=== PATIENT | female | born 1950 | race Caucasian/White ===

== ENCOUNTER 2022-06-06 13:29 | Inpatient (IN) | payer MEDICARE ==
[~2022-06-06] VITALS: Ht 157.5 cm; Wt 55.0 kg
[2022-07-01] MEDS ORDERED: SIMVASTATIN20 MG PO (15:10)
[2022-07-01] MEDS ORDERED: HYDRALAZINE HCL10 MG PO (15:12)
--- NOTE | 2022-07-10 05:50 | NUR ---
PT AMABULTED IN TO DAY SURGERY FOR PROCEEDURE. PT UNDRESSES SELF AND DOES CHG WIPE DOWN INDEPENDANTLY, NO ASSISTANCE NEEDED. INTAKE ASSESSMENT DONE. PT DENIES PAIN AND NAUSEA. IV STARTED PER PROTOCOL BY RALPH STEPHENSON. IV FLUIDS STARTED (SEE MAR). SUGEY MACIAS, STATES TO GIVE PEPCID AND SCOPALAMINE PATCH NOW AND HOLD HEPARIN FOR HIM TO GIVEN IN OR. NO ADDITIONAL NEEDS AT THIS TIME. BED RAILS UP. CALL LIGHT WITHIN REACH.
--- NOTE | 2022-07-10 07:08 | NUR ---
COLLEEN MAYES, TO BEDSIDE TO BEDSIDE TO DISCUSS PLAN OF CARE WITH PT. DR. REYES ALSO TO BEDSIDE. PT VERBALIES UNDERSTANDING OF PLAN OF CARE AND STATES HER QUESTIONS HAVE BEEN ANSWERED. ABX SCANNED PER JORGE SHANK PAPERER. NO ADDITIONAL REQUESTS OR CONCERNS. PT TO OR.
--- NOTE | 2022-07-10 08:35 | NUR ---
PT ALERT, ORIENTED AND SUPPORTED BY HER LATIA. PT SEEMS INFORMED, ALL QUESTIONS ASKED ANSWERED. LATIA WILL REMAIN FOR DC. GAVE BLESSING, OR TEAM READY FOR PT. WILL FOLLOW NEEDED
--- NOTE | 2022-07-10 10:14 | NUR ---
07/10/22 1014 Jessica Vences 1004-PATIENT ARRIVED TO PACU ON 6L MASK RR EVEN NONAROUSABLE ORAL AND NASAL AIRWAY IN PLACE. RN DOING JAW THRUST TO MAINTAIN OPEN AIRWAY. PATIENT LAYING SUPINE. IVF INFUSING. DOMINGUEZ CATHETER DRAINING YELLOW URINE. NO DRAINAGE ON DIMAS PAD. SR. LEFT ARM IV INFILTRATED DURING SURGERY IV WAS REMOVED WILL PLACE ICE SLIGHT SWELLING. 1013-PATIENT MAINTAINING OWN AIRWAY WITH ORAL AND NASAL AIRWAY IN PLACE. 6L MASK RR EVEN 100%
--- NOTE | 2022-07-10 12:00 | NUR ---
Pt arrives to medical floor room 113 from PACU. Pt drowsy but oriented x4. Reports no pain. On room air, CPOX, 99%. VSS. Ortega in place draining bright yellow urine. IVF Infusing WNL. Renee pad in place with no drainage noted. Pt at bedside, will cont. plan of care.
--- NOTE | 2022-07-10 13:10 | NUR ---
Post op vital signs taken, pt resting in bed, drowsy but oriented. at bedside, attentive to patient and engaged in care. Per PACU report pt BP post op was in 90/50 range. Pt has no pain or needs.
--- NOTE | 2022-07-10 14:05 | NUR ---
Post op vitals taken. Pt states continuing to feel dizzy, PRN meclizine provided along with scheduled medications. Pt able to swallow pills with water and applesauce. Pt's at bedside and states no needs.
--- NOTE | 2022-07-10 15:05 | NUR ---
Pt VSS, pt states having no pain or nausea, c/o "vision is scrolling down" when she looks at clock- no other complaints. Shannon patent. IVF infusing WNL. Tanner in room with patient and very attentive.
--- NOTE | 2022-07-10 16:10 | NUR ---
Post op vitals complete. Pt resting in bed with eyes closed, awakens to voice and is A+O. Pt and family educated regarding anesthesia medications provided and the time it takes for the body to metabolize such meds, etc. Pt states questions answered and has no needs at this time.
--- NOTE | 2022-07-10 18:05 | NUR ---
Pt continues to c/o blurry vision, Dr Matthews notified and verbal order received to remove scopalamine patch. Pt education complete and patch removed. Will monitor. VSS. A+O. Pt on RA. Ortega emptied, I/Os charted. Pt was able to tolerate 50% of dinner, no pain or nausea. at bedside, engaged in care. Call light within reach.
--- NOTE | 2022-07-10 19:29 | NUR ---
REC REPORT FROM LATOYA GOOD. PT IN BED, STATES EYES STILL FEEL DIFFERENT, NO WORSE THAN WHAT SHE HAD REPORTED TO AM SHIFT. NO NEEDS AT THIS TIME.
--- NOTE | 2022-07-10 20:50 | NUR ---
HS MEDICATIONS GIVEN PER DEC. PT DRINKING ICE WATER, ABLE TO TAKE PO MEDICATIONS, DID GET NAUSEATED AFTER THE HEPARIN SUBQ INJECTION, BUT CLEARED QUICKLY, HAD ALSO DRANK THE MINERAL OIL MEDICATION. DENIED WANTING ANTINAUSEA MEDICATION. ABLE TO MOVE LEGS, FEET, ON COMMAND. PERCARE GENTLY DONE, NOTED SMALL AMOUNT BRIGHT RED BLEEDING ON PERIPAD. FRESH PAD, DISPOSABLE UNDERWEAR ON. NOTED SMALL AMOUNT BRUISING, WITH VAG PACKING VISIBLE. DENIES DISCOMFORT. IV PATENT, CPOX, SCD'S IN PLACE. DOMINGUEZ PATENT. CALL LIGHT WITHIN REACH.
--- NOTE | 2022-07-10 21:12 | NUR ---
LATIA CALLED, STATED THAT HIS WAS CONCERNED ABOUT NOT KNOWING WHAT WAS GOING ON. ASKED QUESTIONS OF MEDICATIONS GIVEN, IF ORDERED BY EDUCATED . CHECKED ON PT, SHE WAS AWAKE, SUGGESTED SHE CALL HER SHE WASN'T GETTING HIS TEXT MESSAGES.
--- NOTE | 2022-07-10 22:39 | NUR ---
2200 MEDICATIONS GIVEN WITH CRACKERS, ICE WATER. STATES SHE WAS SLEEPING PRIOR TO RN INTO ROOM. YELLOW URINE EMPTIED FROM CATH BAG AT THIS TIME. DENIES PAIN. CALL LIGHT WITHIN REACH. CPOX AND SCD'S IN PLACE.
--- NOTE | 2022-07-10 23:42 | NUR ---
CHECKED ON PT, FOUND HER STANDING FOOT BED, SCD'S IN PLACE, DOMINGUEZ INTACT. SAID SHE HEARD VOICES IN [place] AND WAS CHECKING ON THEM. ASSISTED TO BED, KNOWS SHE IS IN THE HOSPITAL, AND RECENT SURGERY. WARM BLANKETS PROVIDED. DENIES NAUSEA, DIZZINESS, NO CONCERNS ABOUT HER EYES COMPARED TO POST SURGERY CONCERNS. ALL PERSONAL SUPPLIES WITHIN REACH. BED ALARM PLACED FOR SAFETY. SCANT BLEEDING NOTED ON PAD, VAG PACKING IN PLACE.
--- NOTE | 2022-07-11 00:17 | NUR ---
ROUNDED ON PT. AWAKE, COMPUTERS "REBOOTING" IN ROOMS. SHE WAS READING HER DEVICE. NO NEEDS.
--- NOTE | 2022-07-11 00:55 | NUR ---
BED ALARM SOUNDING. PT SAID SHE WAS GETTING UP TO SEE IF WE WERE OK, "RAPID RESPONSE WAS CALLED OVERHEAD AND SHE GOT WORRIED". REASSURANCE GIVEN. BACK TO BED, NO NEEDS. BED ALARM PLACED.
--- NOTE | 2022-07-11 02:43 | NUR ---
EYES CLOSED, RESP EVEN AND UNLABORED. CPOX READING 96 RA, HR 76 HR
--- NOTE | 2022-07-11 02:52 | NUR ---
PT NEXT DOOR WOKE THIS PT UP, HER BED ALARM SOUNDING, PT TRYING TO STAND UP, AND USE THE BATHROOM TO "PEE", REMINDED HER OF THE CATH. SHE SAID THATS RIGHT, SORRY TO WAKE YOU. REASSURANCE GIVEN, PT WITH YELLOW URINE IN CATH TUBING. PT BACK INTO BED, IMMEDIATELY CLOSES EYES, SAYS GOOD NIGHT. BED ALARM PLACED.
--- NOTE | 2022-07-11 03:50 | NUR ---
BED ALARM SOUNDING. FOUND PT STANDING END OF BED, SCD'S OFF, LAYING ON BED, GOWN OFF, IV OUT. PT SAID SHE WAS GOING TO THE BATHROOM. ASKED WHERE LATIA WAS. BACK TO BED, BED LINENS CHANGED DUE TO BLOOD FROM DC'D IV. CLEAN GOWN PLACED, SCD'S, CPOX IN PLACE. IV WILL BE REPLACED. PT REMINDED OF WHERE SHE IS, SHE SAID I KNOW, I FORGOT. DOMINGUEZ PATENT, GAUZE PACKING IN PLACE, SMALL AMOUNT BLOODY DISCHARGE NOTED. DENIES PAIN, LOTION APPLIED TO ARMS DUE TO ITCHING, NO RASH, THINKS IT IS THE "WIPES" I USED BEFORE SURGERY. BED ALARM IN PLACE.
--- NOTE | 2022-07-11 04:20 | NUR ---
NEW IV STARTED IN RAC, 20G. IV FLUIDS INFUSING PER ORDER. NO OTHER NEEDS. CALL LIGHT IN REACH.
--- NOTE | 2022-07-11 05:04 | NUR ---
ROUNDED ON PT. CPOX READING 96%, EYES CLOSED, RESP REGULAR AND UNLABORED.
--- NOTE | 2022-07-11 05:45 | NUR ---
ASSESSMENT UNCHANGED THIS AM FROM BEGINNING OF SHIFT. RA, FORGETFUL WHEN WAKES UP. BED ALARM CONTINUED ALL NIGHT PT WOULD STAND AND WANT TO GO T THE BATHROOM. NOTED DIZZINESS WHEN SAT UP RAPIDLY THIS AM, DENIES NAUSEA. ASKED PT IF SHE WAS READY TO WALK AROUND THE ROOM, SHE SAID NO, I AM GOING TO SLEEP. SMALL AMOUNT BLOODY DISCHARGE, WITH VAG PACKING IN PLACE. ANGELICA BORREGO, SCD'S IN PLACE. DRANK WATER, ATE SNACK WITH HER MORNING MEDICATIONS.
--- NOTE | 2022-07-11 06:59 | NUR ---
ROUNDED PT, EYES CLOSED, RESP EVEN AND UNLABORED. BED ALARM CONTINUES.
--- NOTE | 2022-07-11 07:32 | NUR ---
REPORT RECIEVED. PT IN BED SLEEPING. PT LEFT UNDISTURBED.
--- NOTE | 2022-07-11 08:52 | NUR ---
DR CUENCA TO BEDSIDE FOR ROUND AND TO DC VAGINAL PACKING. PT DENIES PAIN. ASSISTED PT TO STAND AT EDGE OF BED BEFORE AMBULATING. PT REPORTED SLIGHT DIZZINESS AND NAUSEA. BROUGHT IN SUBLINGUAL ZOFRAN AND BEFORE BEING ABLE TOADMINSTER PT VOMITED 200MLS. CHANGED DOSE TO IV AND ADMINSTERED. AFTER 10 MINUTES PT FELT BETTER AND WAS ABLE TO AMBULATE TO BATHROOM. DOMINGUEZ THEN DC'D AND PT EDUCATED ON POST VOID RESIDUALS. PAD WITH SMALL AMOUNT OF SANG DRAINAGE. PAD AND UNDERWEAR CAHNGED. PT REPORTS SOME ITCHING. WILL PLAN ON SHOWERING TODAY. NOW AT BEDSIDE. MEDICATIONS ADMISNTERED AND PT ATTEMPTING TO EAT SOME BREAKFAST. PT REPORTS DECREASED APPETITE. PT UP IN CHAIR NOW. IV FLUIDS DC'D PER ORDER.
--- NOTE | 2022-07-11 09:13 | NUR ---
ASSISTED PT BACK TO BED. ATE 5% OF BREKFAST. ONE HOUR SINCE DOMINGUEZ REMOVAL. DID ATTEMPT TO VOID BUT WERE UNSUCCESSFUL. WILL TRY AGAIN IN ANOTHER HOUR.
--- NOTE | 2022-07-11 10:29 | NUR ---
Pt up to toilet for 125 ml first void post hahn removal with 32 ml residual. Urine yellow, clear with few blood clots. Small amount of blood on janeth pad. Pt somewhat wobbly on rising but denies dizziness. Pt also denies nausea and pain at this time. Pt preparing for shower with RODGER Min at this time.
[2022-07-11] MEDS ORDERED: XANAX0.5 MG PO (11:04)
[2022-07-11] MEDS ORDERED: BENADRYL25 MG PO (11:05)
--- NOTE | 2022-07-11 11:05 | NUR ---
MED REC COMPLETE
--- NOTE | 2022-07-11 11:45 | NUR ---
Patient wanted a shower. Stood by in case she needed any assistance. Put clean linens on bed after. Helped her back to bed and applied lotion to alleviate itchiness. William Min.
--- NOTE | 2022-07-11 11:58 | NUR ---
Pt up to bathroom for 300 ml void, bladder scan post residual 100 ml. Pt denies pain, no dizziness with standing. Pt sleepy, cold after walking to bathroom. Pt given warm blanket. Plan to get up for walk with next void or sooner.
--- NOTE | 2022-07-11 12:31 | NUR ---
Pt went for walk 2.5 laps around the unit without issue and returned to bed to rest. Pt continues to deny pain and dizziness. Ate 3 inches of subway sandwich and green beans, denies nausea but states nothing sounds good.
--- NOTE | 2022-07-11 12:39 | NUR ---
PT ALERT, ORIENTED AND SUPPORTED BY HER . BOTH ARE POLITE, BUT DON'T SEEM INTERESTED IN A VISIT. PT SAID SHE WANTED TO TAKE A NAP. GAVE BLESSING WILL FOLLOW
--- NOTE | 2022-07-11 12:58 | NUR ---
Pt up to bathroom independently for 400 ml void with 119 ml residual volume. clear, yellow urine. Minimal bleeding on peripad. Pt denies pain, dizziness, nausea. Pt and inquiring about plan to go home today vs tomorrow. Will contact
--- NOTE | 2022-07-11 13:14 | NUR ---
DR REYES IN TO SEE PT TO DISCUSS PLAN TO D/C TO HOME. CONCERNS ABOUT FIRST BM, ITCHING, PAIN ADDRESSED. PT AND AGREEABLE TO PLAN. PAIN MEDS GIVEN, AWAITING ORDERS.
--- NOTE | 2022-07-11 13:19 | NUR ---
No change in plan for dc.
[2022-07-11] MEDS ORDERED: IBU800 MG PO (13:36)
[2022-07-11] MEDS ORDERED: SENOKOT-S TABL1 EACH PO (13:37)
[2022-07-11] MEDS ORDERED: KONDREMUL2.5 ML/5 M PO (13:37)
--- NOTE | 2022-07-11 13:44 | NUR ---
CHECKED PATIENTS VITALS AND CHARTED I&O. PATIENT IN BED WILL GET MORE ICE WATER FOR PATIENT.
--- NOTE | 2022-07-11 13:46 | PATH ---
[facility] [address] [place], [place] [address] Signed SPECIMEN(S): A UTERUS, CERVIX AND LEFT FALLOPIAN TUBE SPECIMEN SOURCE: A. UTERUS, CERVIX AND LEFT FALLOPIAN TUBE CLINICAL HISTORY: Uterovaginal prolapse, incomplete. TVH, AP sling. FINAL PATHOLOGIC DIAGNOSIS: Uterus with left fallopian tube, hysterectomy with left salpingectomy: - Benign endometrial polyp. - Inactive endometrium; no hyperplasia or neoplasia identified. - Adenomyosis. - Cervix with atrophy. - Left fallopian tube with no significant pathologic changes. BRP:[id number] MICROSCOPIC EXAMINATION: Histologic sections of all submitted blocks are examined by light microscopy. These findings, together with the gross examination, support the pathologic diagnosis. GROSS DESCRIPTION: The specimen, labeled "S,J; A," received in formalin and consists of uterus weighing 36.7 g and measures 5 x 4 x 3 cm. The cervix measures 2.5 x 3 x 2.5 cm. The slit-like os measures 1.4 cm. The serosal surface is pink, smooth, glistening. The resection margin is inked in blue. The exocervical mucosa is pink, smooth, glistening. The cervical mucosa is pink, glistening, herringbone. The endometrial cavity measures 2.5 x 3.2 cm. The endometrium is pink, smooth, glistening and focally slightly hyperemic and thickened, measures 0.4 cm in maximum thickness. There is a possible endometrial polyp that measures 0.4 x 0.3 x 0.2 cm. The myometrium is pink, smooth, glistening, measures 2.5 cm in maximal thickness. Also, in the same container is a 2 cm in length and 0.5 cm in diameter fallopian tube with fimbria that measures 1.5 x 1.5 x 0.5 cm. The fallopian tube serosa is pink, smooth and glistening and surfaces are patent, cylindrical. Environmental Studies Professor sections are submitted in cassettes (A1-A5) as follows: Cassette Summary: PATIENT NAME: GHADA HOLM PATHOLOGY DATE OF : 48 REPORT #: [id number] PHYSICIAN: VANESSA DIAZ PCP: KLARISSA BRISCOE PA-C REPORT IS CONFIDENTIAL AND NOT TO BE RELEASED WITHOUT AUTHORIZATION [facility] [address] [place], [place] [address] Signed (A1-A2) Cervix (A3) Endomyometrium with polyp (A4) Full thickness endomyometrium (A5) Fallopian tube with fimbria entirely submitted KV (under the direct supervision of a pathologist) The Gross Description was prepared using a voice recognition system. The report was reviewed for accuracy; however, sound-alike word errors, addition and/or deletions may occur. If there is any question about this report, please contact Client Services. PERFORMING LABORATORY: The technical component was performed by [facility], [address] [place] [id number] (CLIA# [id number]). Professional interpretation was performed by [facility], [address] [place] [id number] (CLIA# [id number]). Diagnostician: Damon Sarmiento MD Pathologist Electronically Signed 07/11/2022 Copies: ~ PATIENT NAME: GHADA HOLM PATHOLOGY DATE OF : 48 REPORT #: [id number] PHYSICIAN: VANESSA PATHOLOGY PCP: KLARISSA BRISCOE PA-C REPORT IS CONFIDENTIAL AND NOT TO BE RELEASED WITHOUT AUTHORIZATION
--- NOTE | 2022-07-11 14:30 | NUR ---
Assessment done, pt resting in bed, resp even and unlabored. Call light in reach. Discharge in progress.
--- NOTE | 2022-07-11 16:06 | NUR ---
TOOK PATIENT'S IV OUT. KLARISSA DID HER DISCHARGE VITALS. PATIENT IS DRESSED AND READY TO GO WHEN HER RIDE GETS HER AROUND 1700. SHE WILL NOT BE EATING DINNER.
--- NOTE | 2022-07-14 05:01 | OR ---
[facility] [address] [facility] [place] [address] Signed DATE OF OPERATION: 07/10/2022 SURGEON: Fatimah Matthews MD MASTER PILOT: Dominique Barton D.O. PREOPERATIVE DIAGNOSES: 1. Uterovaginal prolapse. 2. Stress incontinence. POSTOPERATIVE DIAGNOSES: 1. Uterovaginal prolapse. 2. Stress incontinence. PROCEDURES: 1. Total vaginal hysterectomy. 2. Left salpingectomy. 3. Obturator sling. 4. Cystoscopy. 5. Rectocele repair. ANESTHESIA: Spinal with IV sedation. ESTIMATED BLOOD LOSS: 100 mL. DRAINS: Ortega catheter. PACKS: Vaginal. INDICATIONS AND FINDINGS: The patient is a 72-year-old female, who has been having increasing issues with prolapse with feeling a bulge and pressure. She also has stress incontinence. She was counseled and she chose surgical correction. At the time of surgery, she had significant prolapse with the cervix presenting within 2 cm of the introitus. She had a grade 2 cystocele and a grade 2 rectocele. After completion of the hysterectomy, the patient's left tube Electronically Signed By: FATIMAH MATTHEWS MD 07/14/22 0501 PATIENT NAME: GHADA HOLM OPERATIVE REPORT DATE OF : 48 REPORT #: [id number] PHYSICIAN: FATIMAH MATTHEWS MD PCP: KLARISSA BRISCOE PA-C REPORT IS CONFIDENTIAL AND NOT TO BE RELEASED WITHOUT AUTHORIZATION [facility] [address] [place], [place] [address] Signed was normal. The ovaries were seen and were normal. The right tube could not be seen. Her cystocele resolved with hysterectomy. She also had a grade 2 rectocele. DESCRIPTION OF PROCEDURE: The patient was prepped and draped in the dorsal lithotomy position. A weighted speculum was placed. The anterior and posterior lips of the cervix were grasped with single-tooth tenaculums. The cervix was injected with 1% lidocaine with 1:200,000 epi to a volume of 10 mL. The posterior cul-de-sac was then entered sharply. The [place]ck speculum was then placed. The uterosacral ligaments were grasped bilaterally, incised, and suture ligated with 0-Vicryl. Following this, the vaginal mucosa was scored with a knife and sharp dissection was used to push the vaginal mucosa off the cervix. Another bite was taken on each side using the curved Z clamps and divided with the Zhu scissors and suture ligated with 0-Vicryl. Following this, the anterior cul-de-sac was then entered sharply. Serial bites were then taken in the cardinal ligament and uterine vessel areas taking care to incorporate both the posterior and anterior aspects of the peritoneum. Each of these were incised and suture ligated with 0-Vicryl. Following this, the broad ligament pedicles were clamped across using the curved Z clamps and divided. This was followed by a free tie of 0-Vicryl and then a suture ligature of 0-Vicryl. This was done bilaterally. The patient's left tube was then identified, and grasped with Jose clamp. It was clamped across and excised. A free tie of 0-Vicryl was placed. The patient's right ovary could be seen, but the right tube was too high and it was felt removal would increase the risk of bleeding and thus was left in situ. Following this, the cuff was serially evaluated. There was some bleeding near the patient's left uterine vessel areas. Several fqpxnq-[id number]-rvbfnk of 0-Vicryl were placed in this area with good hemostasis. There was also bleeding from the posterior cuff and the peritoneum was brought to the posterior cuff with two zwuaal-bi-maqsl sutures of 0-Vicryl. The anterior peritoneum was tacked to the cuff anteriorly as well. Preparations were made for closure as the cuff appeared hemostatic. The peritoneum was closed with a running suture of 3-0 Vicryl. The cuff itself was closed with a running locking stitch of 0-Vicryl. Following this, there was no evidence of any remaining cystocele. Preparations were made for the sling procedure. The vaginal mucosa was grasped in the midline anteriorly. This was incised sharply and dissection was done the mucosa from the underlying tissue. The dissection was carried out superiorly and laterally behind the pubic rami. The obturator notches were identified and skin incisions were made. The trocars for the sling were then placed. These were inserted at the lowest, most medial point of the obturator notch and taken immediately behind the pubic rami and into the apex of the vaginal incision. This was done bilaterally. Cystoscopy was then done. The Ortega was removed and the 70 degree cystoscope inserted. She had received IV fluorescein. There was no evidence of any incursion of the trocars into the bladder. Both ureteral orifices were seen and had free flow of fluorescein stained urine. The Electronically Signed By: FATIMAH MATTHEWS MD 07/14/22 0501 PATIENT NAME: GHADA HOLM OPERATIVE REPORT DATE OF : 48 REPORT #: [id number] PHYSICIAN: FATIMAH MATTHEWS MD PCP: KLARISSA BRISCOE PA-C REPORT IS CONFIDENTIAL AND NOT TO BE RELEASED WITHOUT AUTHORIZATION [facility] [address] [place], [place] [address] Signed bladder was then drained and the Ortega replaced. There was some bleeding in the upper reaches of the vaginal incision bilaterally and this could not be sutured. FloSeal was injected into these areas to improve hemostasis. The sling was then attached to the trocars and brought through the skin incisions. The plastic covering was removed after proper location and tension was noted. The extra sling material was removed at the skin. The vaginal mucosa was then closed with a running suture of a 2-0 Vicryl. The rectocele repair was begun. A triangle of tissue was removed from the perineal body with the knife. The vaginal mucosa was then undermined and incised in the midline to the apex of the vagina. The vaginal mucosa was from the underlying tissue with a combination of blunt and sharp dissection. The defect in the perirectal fascial type tissue appeared to be almost U-shaped defect. Interrupted sutures of 0-Vicrly were used to repair the defect. A rectal examination was done and there was no evidence of compromise of the rectal lumen. The cuff itself appeared to be well supported and no cuff suspension was done. The vaginal mucosa was then trimmed and closed from the apex of the vagina to the hymenal ring with a running suture of 2-0 Vicryl. The perineal body was recreated with interrupted sutures of 2-0 Vicryl. The posterior fourchette was recreated with running suture of 2-0 Vicryl. The skin of the perineum was closed with subcuticular sutures of 3-0 Vicryl. Inspection of the vault showed good length and caliber. There was no bleeding along the anterior or posterior suture lines. Bleeding was noted from the right hand side of the cuff closure where the vaginal mucosa was open. Because of this, two pymdbb-mt-csngb sutures of 0-Chromic were placed superficially closing the defect with good hemostasis noted. The vaginal canal was then packed with Premarin-coated gauze. All sponge and needle counts were correct. She tolerated procedure well and was taken to the recovery room in good condition. MD ETELVINA DodsonW/MODL /[id number] cc: Dominique Barton [facility] Electronically Signed By: FATIMAH MATTHEWS MD 07/14/22 0501 PATIENT NAME: GHADA HOLM OPERATIVE REPORT DATE OF : 48 REPORT #: [id number] PHYSICIAN: FATIMAH MATTHEWS MD PCP: KLARISSA BRISCOE PA-C REPORT IS CONFIDENTIAL AND NOT TO BE RELEASED WITHOUT AUTHORIZATION [facility] [address] [place] [address] Signed Copies: [facility] Electronically Signed By: FATIMAH MATTHEWS MD 07/14/22 050 PATIENT NAME: GHADA HOLM OPERATIVE REPORT DATE OF : 48 REPORT #: [id number] PHYSICIAN: FATIMAH MATTHEWS MD PCP: KLARISSA BRISCOE PA-C REPORT IS CONFIDENTIAL AND NOT TO BE RELEASED WITHOUT AUTHORIZATION
== END 2022-07-11 17:15 | disposition home or self-care (01) | DRG 743 ==
LOC: MS 07-10 05:49 → DSVR 07-10 05:49 → MS 07-10 07:30
PROVIDERS: ADMIT Obstetrics & Gynecology; ATTEND Obstetrics & Gynecology
PROC: 0UT9FZZ Resection of Uterus, Via Natural or Artificial Opening With Percutaneous Endoscopic Assistance (ICD-10-PCS; principal; 2022-07-10 07:30)
PROC: 0UT6FZZ Resection of Left Fallopian Tube, Via Natural or Artificial Opening With Percutaneous Endoscopic Assistance (ICD-10-PCS; 2022-07-10 07:30)
DX: N81.2 Incomplete uterovaginal prolapse (principal); E78.5 Hyperlipidemia, unspecified; Z79.899 Other long term (current) drug therapy; Z98.890 Other specified postprocedural states; N39.3 Stress incontinence (female) (male)
CPT/HCPCS: 00944; 36415; 80048; 85025; 88307; A9270; C1771; J0690; J1100; J1644; J1885; J2001; J2250; J2274; J2300; J2310; J2405; J2704; J3010; J7121

== ENCOUNTER 2022-11-06 06:55 | Day surgery (SDC) | payer MEDICARE ==
[~2022-11-06] VITALS: Ht 157.5 cm; Wt 54.4 kg
[~2022-11-06 06:55] MED LIST: BENADRYL25 MG PO; CALCIUM + D3 E1 EACH PO; HYDRALAZINE HCL10 MG PO; IBU800 MG PO; KONDREMUL2.5 ML/5 M PO; NAPROXEN SODIU220 M1 PO; ONE DAILY WOME1 EAC2 PO; SENOKOT-S TABL1 EACH PO; SIMVASTATIN20 MG PO; XANAX0.5 MG PO
--- NOTE | 2022-11-06 09:20 | NUR ---
11/06/22 0920 Nicci Costa 0904 PT ARRIVED IN PACU SLEEPY. ABD SOFT. 0915 RESTING. REU.
--- NOTE | 2022-11-06 10:09 | OR ---
[facility] [address], [place] [address] Signed DATE OF OPERATION: 11/06/2022 SURGEON: Anjel Gaffney MD PREOPERATIVE DIAGNOSES: 1. Sister with colon cancer at age 62. 2. Negative colonoscopies in 2004 and 2009 at the ages of 55 and 60. POSTOPERATIVE DIAGNOSES: 1. Long redundant colon. 2. Tortuous sigmoid colon. 3. Minimal to moderate internal and external hemorrhoids with associated skin tags. PROCEDURE: Colonoscopy without biopsy. ESTIMATED BLOOD LOSS: None. INDICATIONS: Ghada is a 72-year-old female, asked to see me for a followup colonoscopy. Her sister was diagnosed and of colon cancer at age of 62. Ghada underwent negative colonoscopies in 2004 and 2009 at the age of 55 and 60. She was in [place], [place] for the 1st colonoscopy and there was concern of perforated colon. [facility] hospital for CT scan and everything was fine. Of course, that was a bit frightening, so she did her next colonoscopy at our [facility], that also went fine. There was some suggestion she might benefit from a pediatric scope since she has such a small body habitus at 5 foot 1 inch and 115 pounds. She had reviewed that with me in the office as well as today. I also met with her this morning. In the office, I had given her a pamphlet on colonoscopy. We had reviewed the nature of the test. She understands there is a 1% or less risk that we would perforate the colon. There is other risk including, but not limited to gas bloating, crampy abdominal pain, bleeding, perforation requiring surgery, and missed diagnosis. We also reviewed the written instructions for the bowel prep. We specifically asked for monitored anesthesia care with propofol infusion given the fact that she uses alprazolam on a regular basis and they are much more relaxed during the procedure and therefore technically much easier to pass the scope. She had expressed understanding and wished to proceed. PROCEDURE NOTE: Electronically Signed By: ANJEL GAFFNEY MD 11/06/22 1009 PATIENT NAME: GHADA HOLM OPERATIVE REPORT DATE OF : 48 REPORT #: [id number] PHYSICIAN: ANJEL GAFFNEY MD PCP: KLARISSA BRISCOE PA-C REPORT IS CONFIDENTIAL AND NOT TO BE RELEASED WITHOUT AUTHORIZATION [facility] [address] [place] [id number] Signed Ghada was taken into our endoscopy suite and placed in the left lateral decubitus position. She was given IV sedation with propofol per our nurse dog bather. A digital rectal exam was performed. She has moderate circumferential external hemorrhoids. She had good sphincter tone. There were no masses. The adult colonoscope was introduced and advanced all around into the cecum under direct visualization of the camera without difficulty. It took extra sedation and abdominal compression in order to advance the scope. She does have a tortuous sigmoid colon. She does have a long redundant colon. One has to keep that in mind as I carefully passed the scope. We could easily see the appendiceal orifice and ileocecal valve. The scope was then slowly withdrawn. We took pictures throughout for photodocumentation. She had a few areas of liquid stool which we suctioned out. She might benefit from a split bowel regimen in the future. Again, we came back through her long redundant colon and down through a tortuous sigmoid colon. Once in the rectum, the scope was retroflexed and she does have moderate internal hemorrhoid columns as well with associated skin tags. After this, the gas was suctioned out and the colonoscope removed. We did not see any diverticulosis or polyps. Ghada actually tolerated the procedure quite well. RECOMMENDATIONS: Ghada can follow up in 5 years for repeat colonoscopy based on her family history. She should always have monitored anesthesia care for her safety. She might consider a split bowel regimen in the future. Anjel Gaffney MD ALB/MODL /[id number] cc: SUSAN Meeks MD Patricia J Winn, MD Copies: COLLEEN SYKES ANDREW L MD Electronically Signed By: ANJEL GAFFNEY MD 11/06/22 1009 PATIENT NAME: GHADA HOLM OPERATIVE REPORT DATE OF : 48 REPORT #: [id number] PHYSICIAN: ANJEL GAFFNEY MD PCP: KLARISSA BRISCOE PA-C REPORT IS CONFIDENTIAL AND NOT TO BE RELEASED WITHOUT AUTHORIZATION [facility] [address] [place] [id number] Signed ALICE REYES MD ~ Electronically Signed By: ANJEL GAFFNEY MD 11/06/22 1009 PATIENT NAME: GHADA HOLM OPERATIVE REPORT DATE OF : 48 REPORT #: [id number] PHYSICIAN: ANJEL GAFFNEY MD PCP: KLARISSA BRISCOE PA-C REPORT IS CONFIDENTIAL AND NOT TO BE RELEASED WITHOUT AUTHORIZATION
== END 2022-11-06 09:40 | disposition home or self-care (01) ==
LOC: DS 06:55
PROVIDERS: ATTEND Colon & Rectal Surgery
PROC: 0DJD8ZZ Inspection of Lower Intestinal Tract, Via Natural or Artificial Opening Endoscopic (ICD-10-PCS; principal; 2022-11-06 08:15)
DX: Z09 Encounter for follow-up examination after completed treatment for conditions other than malignant neoplasm (principal); K64.8 Other hemorrhoids; K63.89 Other specified diseases of intestine; K64.4 Residual hemorrhoidal skin tags; E78.5 Hyperlipidemia, unspecified; G47.00 Insomnia, unspecified; Z80.0 Family history of malignant neoplasm of digestive organs
CPT/HCPCS: J2704; J7121